=== PATIENT | male | born 1960 | race Two or more races ===

== ENCOUNTER → 2025-03-17 | Day surgery (SDC) | payer OTHER ==
[2025-03-14 11:58] LABS: Hematocrit 46.8 % (41.0-53.0); Hemoglobin 16.3 g/dL (13.5-17.5); Mean Corpuscular Hemoglobin 31.7 pg (28.0-32.0); Mean Corpuscular Volume 91.2 fL (80.0-100.0); Nucleated Red Blood Cells % 0.0 %
[2025-03-14 12:28] LABS: Alanine Aminotransferase 18 U/L (7-40); Albumin 4.8 g/dL (3.2-4.8); Alkaline Phosphatase 79 U/L (46-116); Anion Gap 8 (5-15); BUN/Creatinine Ratio 11.9 (10.0-20.0); Bilirubin, Total 0.5 mg/dL (0.2-1.0); Blood Urea Nitrogen 13 mg/dL (9-23); Carbon Dioxide 27 mmol/L (20-31); Chloride 106 mmol/L (98-107); Potassium 4.0 mmol/L (3.5-5.1); Sodium 141 mmol/L (136-145); Total Protein 7.4 g/dL (5.7-8.2)
[2025-03-14 12:31] LABS: Calcium 10.6 mg/dL (8.7-10.4); Glucose 120 mg/dL (74-106)
[~2025-03-17] VITALS: Ht 180.3 cm; Wt 93.0 kg
[~2025-03-17] MED LIST: ALL100T PO; ATOR-507 PO; LISI30TA8 PO
[2025-03-17] MEDS: fentaNYL CITRATE 100 MCG/2 ML VL ONE (10:57)
[2025-03-17] MEDS: MIDAZOLAM HCL 2MG/2ML 2ml VIAL (1mg/ml) ONE (10:57)
--- NOTE | 2025-03-17 11:15 | DVHNC2 ---
Procedure - PROCEDURE DATE: MARCH 17, 2025 PERFORMED BY: DR. FARIA REFERRING PROVIDER:DR DALTON PROCEDURE PERFORMED: 1. COLONOSCOPY WITH MODERATE SEDATION 2.COLONOSCOPY WITH COLD BIOPSY POLYPECTOMY PREPROCEDURE DIAGNOSIS: 1. COLON CANCER SCREENING 2.COLONOSCOPY WITH COLD BIOPSY POLYPECTOMY POSTPROCEDURE DIAGNOSIS: 1. INTERNAL HEMORRHOIDS 2. MODERATE DIVERTICULOSIS 3.3 SMALL COLON POLYPS MEDICATIONS USED: 4MG OF VERSED AND 50 MCG OF F[place] IV INDICATIONS FOR PROCEDURE: THE PATIENT IS A 64 YEAR-OLD MALE PRESENTS FOR OUTPATIENT COLONOSCOPY FOR SCREENING AND OCCULT POSITIVE STOOL TEST DETAILS OF THE PROCEDURE: INFORMED CONSENT WAS OBTAINED AFTER RISKS BENEFITS AND ALTERNATIVES WERE DISCUSSED AT LENGTH WITH THE PATIENT. THE PATIENT GAVE CONSENT TO THE PROCEDURES WELL A MEDICATION USED FOR SEDATION. THE PATIENT WAS PLACED IN THE LEFT LATERAL DECUBITUS POSITION. DIGITAL RECTAL EXAMINATION SHOWED SMALL EXTERNAL HEMORRHOIDS. AN OLYMPUS VARIABLE TORSION ADULT COLONOSCOPE WAS INSERTED INTO THE RECTUM ADVANCE THE CECUM. THE SCOPE WAS THEN WITHDRAWN. THE PREP WAS GOOD WITH ONLY SMALL AMOUNTS OF STOOL. THERE WERE NO LARGE POLYPS, MASSES, STRICTURES, OR ARTERIOVENOUS MALFORMATION SEEN. THE PATIENT HAD MODERATE MODERATE RIGHT SIDED DIVERTICULOSIS. THERE WERE THREE SMALL POLYPS REMOVED WITH COLD BIOSPY FORCEPS IN THE CECUM AND ASCENDING COLON. RETROFLEXION SHOWED INTERNAL HEMORRHOIDS. PATIENT TOLERATED THE PROCEDURE WELL. COLONOSCOPY START TIME: 1101 COLONOSCOPY CECUM TIME: 1103 COLONOSCOPY END TIME: 1112 PREP SCORE: 8 IMPRESSION: 1. INTERNAL HEMORRHOIDS 2. DIVERTICULOSIS 3.3 SMALL POLYPS RECOMMENDATIONS: 1. FOLLOW UP WITH PRIMARY CARE PHYSICIAN/GI CLINIC 2. HIGH-FIBER DIET 3. REPEAT COLONOSCOPY IN 3 YEARS UNLESS INDICATED OTHERWISE 4.MEDICAL MANAGEMENT OF THE HEMORRHOIDS I WOULD LIKE TO THANK DR. HARRINGTON FOR THE REFERRAL CASIE FARIA MD Mar 17, 2025 11:15
[2025-03-17 11:16] VITALS: PULSE 74; RESP 18; O2SAT 96
[2025-03-17 12:00] VITALS: BP 106/76; PULSE 64; RESP 14; O2SAT 94
== END | disposition home or self-care (01) ==
LOC: GI 09:41
PROVIDERS: ATTEND Specialist
DX: R19.5 Other fecal abnormalities (principal); D12.0 Benign neoplasm of cecum; K57.30 Diverticulosis of large intestine without perforation or abscess without bleeding; K64.8 Other hemorrhoids; Z98.890 Other specified postprocedural states
CPT/HCPCS: 36415; 45380; 80053; 85025; 85730; 88305; J2250; J3010; 99152

== ENCOUNTER → 2025-06-11 | Outpatient (CLI) | payer OTHER ==
[2025-06-11 09:46] LABS: Hematocrit 48.4 % (41.0-53.0); Hemoglobin 16.5 g/dL (13.5-17.5); Mean Corpuscular Hemoglobin 30.5 pg (28.0-32.0); Mean Corpuscular Volume 89.8 fL (80.0-100.0); Nucleated Red Blood Cells % 0.0 %
[2025-06-11 10:09] LABS: Urine Protein, UAD Negative (Negative)
[2025-06-11 10:35] LABS: Alanine Aminotransferase 24 U/L (7-40); Albumin 4.8 g/dL (3.2-4.8); Alkaline Phosphatase 69 U/L (46-116); Anion Gap 11 (5-15); BUN/Creatinine Ratio 10.5 (10.0-20.0); Bilirubin, Total 0.7 mg/dL (0.2-1.0); Blood Urea Nitrogen 12 mg/dL (9-23); Calcium 9.8 mg/dL (8.7-10.4); Carbon Dioxide 25 mmol/L (20-31); Chloride 104 mmol/L (98-107); Cholesterol 163 mg/dL (< 200); Potassium 4.3 mmol/L (3.5-5.1); Sodium 140 mmol/L (136-145); Total Protein 8.1 g/dL (5.7-8.2)
[2025-06-11 10:40] LABS: Glucose 119 mg/dL (74-106); HDL Cholesterol 32 mg/dL (40-59); Triglycerides 326 mg/dL (< 150)
== END | disposition home or self-care (01) ==
LOC: LAB 09:27
PROVIDERS: ATTEND Student in an Organized Health Care Education/Training Program
DX: R73.9 Hyperglycemia, unspecified (principal); I10 Essential (primary) hypertension
CPT/HCPCS: 36415; 80053; 80061; 81001; 83036; 85025